=== PATIENT | male | born 1955 | race Caucasian/White ===

== ENCOUNTER → 2020-06-04 | Outpatient (CLI) | payer OTHER ==
[~2020-06-04] MED LIST: AMLO-150 PO; FAMO20TA7 PO; LISI-170 PO; OMNIPAQUE 350 MG/ML, 75ML BOTTLE ONE
[2020-06-04 11:33] LABS: ANION GAP 4 mmol/L (5-15); CALCIUM 9.7 mg/dL (8.5-10.1); CHLORIDE 105 mmol/L (98-107); CREATININE 1.07 mg/dL (0.7-1.3)
== END | disposition home or self-care (01) ==
LOC: CFH 11:01
PROVIDERS: ATTEND Nurse Practitioner Family
DX: J98.4 Other disorders of lung (principal); R06.02 Shortness of breath
CPT/HCPCS: 36415; 71260; 80048; Q9967

== ENCOUNTER → 2020-06-17 | Outpatient (CLI) | payer OTHER ==
[~2020-06-17] MED LIST changes: -OMNIPAQUE 350 MG/ML, 75ML BOTTLE ONE
== END | disposition home or self-care (01) ==
LOC: CVU 13:41 → EDSTATUS 14:00
PROVIDERS: ATTEND Nurse Practitioner Family
DX: I08.2 Rheumatic disorders of both aortic and tricuspid valves (principal); I10 Essential (primary) hypertension
CPT/HCPCS: 93306